=== PATIENT | male | born 1980 | race American Indian/Alaskan Native ===

== ENCOUNTER 2021-02-01 08:38 | Emergency (ER) | payer OTHER ==
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
[2021-02-01 09:48] VITALS: BP 155/87
== END 2021-02-01 09:40 | disposition home or self-care (01) ==
LOC: ED 08:38
DX: M79.10 Myalgia, unspecified site (principal); I10 Essential (primary) hypertension; Z79.899 Other long term (current) drug therapy; V49.49XA Driver injured in collision with other motor vehicles in traffic accident, initial encounter; Y93.89 Activity, other specified; Y92.488 Other paved roadways as the place of occurrence of the external cause; Y99.8 Other external cause status
CPT/HCPCS: 99281